=== PATIENT | female | born 1975 | race Caucasian/White ===

== ENCOUNTER 2020-12-18 06:21 | Day surgery (SDC) | payer OTHER ==
[~2020-12-18 06:21] MED LIST: Dextrose 5%-0.45% NaCl 1,000 ML IV SCH; Midazolam 1 MG/ML 2 ML SDV ONE; Sodium Chloride 0.9% 10 ML Syringe FLUSH PRN; fentaNYL 100 MCG/2 ML SDV ONE
[2020-12-18] MEDS ORDERED: Midazolam 1 MG/ML 2 ML SDV IV ONE ×7 (06:22→07:36)
[2020-12-18] MEDS ORDERED: fentaNYL 100 MCG/2 ML SDV IV ONE ×7 (06:22→07:43)
--- NOTE | 2020-12-18 10:35 | OR ---
DATE: 12/18/2020 PROCEDURES: Total colonoscopy, total ileoscopy, narrow band imaging, and multiple pinch biopsies. INSTRUMENT USED: PCF-H190DL Olympus video colonoscope. PREMEDICATIONS: Fentanyl 200 mcg intravenous, Versed 4 mg intravenous. The procedure was done under pulse oximetry, BP recording, and coding clerk. INDICATION: The patient with status post COVID-19 and chronic diarrhea and abdominal pain, unexplained but not responsive to medical measures. Colonoscopic examination is done for detection of any polypoid lesions and removal, biopsies to be obtained for microscopic colitis, endoscopic hemostasis therapy if needed. DESCRIPTION OF PROCEDURE: Initial rectal exam was unremarkable. Rigid anoscopy showed patchy erythema of the rectal mucosa with some contact bleeding. The colonoscope was passed with ease. Photographs were taken of the rectum, descending colon, transverse colon, as well as cecum and ascending colon showing areas of friability, contact bleeding, and ulcerations. No bleeding was noted from any of the visualized areas at the commencement of the examination. No stricture. No polyp or tumor mass identified. The scope was passed beyond the ileocecal junction to visualize terminal ileum that showed evidence of ileitis with ulcers. NBI views were taken. Photographs were obtained. Multiple pinch biopsies were obtained from the normal mucosa of the terminal ileum, cecum, ascending colon, transverse colon, descending colon, as well as rectosigmoid and sent for histopathology. The bowel preparation was found to be adequate, [place] scale 3 in all the areas. Total score 9. Probing the proximal sides of folds and flexures using adequate distention and clearing of the stool material, withdrawal of the scope was made. No bleeding was noted from any of the visualized areas at the completion of examination. IMPRESSION: Inflammatory bowel disease. The patient tolerated the procedure well. [facility] /[id number]
== END 2020-12-18 10:02 | disposition home or self-care (01) ==
LOC: DL.ENDO 06:21
PROVIDERS: ATTEND Internal Medicine Gastroenterology
DX: K52.9 Noninfective gastroenteritis and colitis, unspecified (principal); Z86.16 Personal history of COVID-19; Z98.890 Other specified postprocedural states
CPT/HCPCS: 45380; J2250; J3010; J7042

== ENCOUNTER 2021-08-14 06:56 | Day surgery (SDC) | payer OTHER | END 2021-08-14 08:45 | disposition home or self-care (01) | LOC: DL.SDS 06:56 | PROVIDERS: ATTEND Internal Medicine Gastroenterology | DX: K51.911 Ulcerative colitis, unspecified with rectal bleeding (principal); D64.9 Anemia, unspecified; E66.09 Other obesity due to excess calories; Z86.16 Personal history of COVID-19; Z68.29 Body mass index [BMI] 29.0-29.9, adult ==